=== PATIENT | female | born 1995 | race Caucasian/White ===

== ENCOUNTER 2017-04-28 12:55 | Emergency (ER) | payer OTHER ==
[~2017-04-28] VITALS: Ht 160 cm; Wt 105.4 kg
[2017-04-28] MEDS ORDERED: TUMS500 MG PO (13:07)
[2017-04-28] MEDS ORDERED: CRANBERR3 PO (13:07)
[2017-04-28] MEDS ORDERED: FISH OIL1 CAP (13:08)
[2017-04-28 13:40] LABS: HEMATOCRIT 42.8 % (37.0-47.0); HEMOGLOBIN 14.1 g/dl (12.0-16.0); IMMATURE GRANULOCYTES 0.4 % (0.0-1.0); MEAN CELL VOLUME 89.4 fL CALC (80.0-100.0); MEAN CORPUSCULAR HGB 29.4 pG CALC (26.0-32.0); MEAN CORPUSCULAR HGB CONC 32.9 g/L CALC (32.0-36.0); NEUT# 9.01 thou/uL (2.00-7.15); RED BLOOD COUNT 4.79 mill/uL (4.20-5.60); RED CELL DISTRI WIDTH 12.7 % (11.5-15.5)
[2017-04-28 13:57] LABS: ALBUMIN 4.5 g/dL (3.2-5.0); ALKALINE PHOSPHATASE 156 u/l (38-126); AMYLASE < 30 u/l (30-110); ANION GAP 20 (6-22 (CALC)); BILIRUBIN, TOTAL 0.7 mg/dL (0.0-1.4); BUN 12 mg/dL (7-17); BUN/CREATININE RATIO 23 (12-20 (CALC)); CALCIUM 9.8 mg/dL (8.4-10.2); CARBON DIOXIDE 18 mmol/l (22-30); CHLORIDE 107 mmol/l (95-108); CREATININE 0.5 mg/dL (0.5-1.0); GFR > 60 ML/MIN (>=60 (CALC)); GFR FOR AFR.AMER. > 60 ML/MIN (>=60 (CALC)); GLUCOSE 104 mg/dL (65-105); LIPASE 37 u/l (23-300); SGOT/AST 35 u/l (14-36); SGPT/ALT 103 u/l (9-52); SODIUM 141 mmol/l (137-146); TOTAL PROTEIN 7.5 g/dL (6.3-8.2)
[2017-04-28] MEDS ORDERED: PHENERGAN25 MG/TAB PO (15:12)
[2017-04-28] MEDS ORDERED: ZOFRAN ODT4 MG PO (15:12)
[2017-04-28 15:23] LABS: URINE BLOOD DIPSTICK NEGATIVE (NEGATIVE); URINE COLOR YELLOW; URINE GLUCOSE - DIPSTICK NEGATIVE (NEGATIVE); URINE KETONE >=80 mg/dL (NEGATIVE); URINE LEUK ESTERASE NEGATIVE (NEGATIVE); URINE NITRITE - DIPSTICK NEGATIVE (Negative); URINE PH 5.5 (4.5-8.0); URINE PROTEIN - DIPSTICK NEGATIVE (NEG-TRACE); URINE SPECIFIC GRAVITY >=1.030; URINE UROBILINOGEN - DIPSTICK 0.2 E.U./dL (0.2)
[2017-04-28 15:25] LABS: URINE BILIRUBIN - DIPSTICK SMALL (NEGATIVE); URINE CLARITY CLEAR
[2017-04-28 15:28] VITALS: BP 137/84
== END 2017-04-28 15:36 | disposition home or self-care (01) | DRG 781 ==
LOC: ED 12:55
PROVIDERS: Emergency Medicine
DX: O99.611 Diseases of the digestive system complicating pregnancy, first trimester (principal); R50.9 Fever, unspecified; R11.10 Vomiting, unspecified; Z3A.08 8 weeks gestation of pregnancy; R19.7 Diarrhea, unspecified

== ENCOUNTER 2017-05-09 14:03 | Emergency (ER) | payer OTHER ==
[~2017-05-09] VITALS: Ht 160 cm; Wt 105.0 kg
[~2017-05-09 14:03] MED LIST: CRANBERR3 PO; FISH OIL1 CAP; PHENERGAN25 MG/TAB PO; TUMS500 MG PO; ZOFRAN ODT4 MG PO
[2017-05-09 15:44] LABS: HEMATOCRIT 41.5 % (37.0-47.0); HEMOGLOBIN 13.7 g/dl (12.0-16.0); IMMATURE GRANULOCYTES 0.4 % (0.0-1.0); MEAN CELL VOLUME 88.7 fL CALC (80.0-100.0); MEAN CORPUSCULAR HGB 29.3 pG CALC (26.0-32.0); NEUT# 7.57 thou/uL (2.00-7.15); RED BLOOD COUNT 4.68 mill/uL (4.20-5.60); RED CELL DISTRI WIDTH 12.4 % (11.5-15.5)
[2017-05-09 15:54] LABS: ANION GAP 18 (6-22 (CALC)); BUN 8 mg/dL (7-17); BUN/CREATININE RATIO 16 (12-20 (CALC)); CALCIUM 9.7 mg/dL (8.4-10.2); CARBON DIOXIDE 21 mmol/l (22-30); CHLORIDE 105 mmol/l (95-108); CREATININE 0.5 mg/dL (0.5-1.0); GFR > 60 ML/MIN (>=60 (CALC)); GFR FOR AFR.AMER. > 60 ML/MIN (>=60 (CALC)); GLUCOSE 82 mg/dL (65-105); POTASSIUM 3.8 mmol/l (3.5-5.1); SODIUM 140 mmol/l (137-146)
[2017-05-09] MEDS ORDERED: PRENATA3 PO (16:28)
[2017-05-09 16:36] LABS: BETA-HCG, QUANT(RESULT NUMBER) 80576 mIU/mL
[2017-05-09 16:51] LABS: URINE BLOOD DIPSTICK SMALL (NEGATIVE); URINE COLOR YELLOW; URINE GLUCOSE - DIPSTICK NEGATIVE (NEGATIVE); URINE KETONE >=80 mg/dL (NEGATIVE); URINE LEUK ESTERASE NEGATIVE (NEGATIVE); URINE NITRITE - DIPSTICK NEGATIVE (Negative); URINE PROTEIN - DIPSTICK TRACE mg/dL (NEG-TRACE); URINE SPECIFIC GRAVITY >=1.030; URINE UROBILINOGEN - DIPSTICK 0.2 E.U./dL (0.2)
[2017-05-09 16:53] LABS: URINE BILIRUBIN - DIPSTICK NEGATIVE (NEGATIVE); URINE CLARITY CLEAR
[2017-05-09 17:01] LABS: URINE SQUAMOUS EPITHELIAL CELL FEW EPI/hpf (0-FEW); URINE WBC 0-2 WBC/hpf (0-5)
[2017-05-09 18:48] VITALS: BP 104/53
== END 2017-05-09 18:48 | disposition home or self-care (01) | DRG 778 ==
LOC: ED 14:03
PROVIDERS: Family Medicine
DX: O20.9 Hemorrhage in early pregnancy, unspecified (principal); Z3A.10 10 weeks gestation of pregnancy

== ENCOUNTER 2017-12-22 18:31 | Emergency (ER) | payer OTHER ==
[~2017-12-22] VITALS: Ht 160 cm; Wt 100.0 kg
[~2017-12-22 18:31] MED LIST changes: +PRENATA3 PO
[2017-12-22 20:28] VITALS: BP 131/81
== END 2017-12-22 20:28 | disposition home or self-care (01) ==
LOC: ED 18:31
DX: S93.401A Sprain of unspecified ligament of right ankle, initial encounter (principal); W01.0XXA Fall on same level from slipping, tripping and stumbling without subsequent striking against object, initial encounter; Y92.009 Unspecified place in unspecified non-institutional (private) residence as the place of occurrence of the external cause

== ENCOUNTER 2018-03-12 01:20 | Emergency (ER) | payer SELFPAY ==
[~2018-03-12] VITALS: Ht 160 cm; Wt 104.5 kg
[~2018-03-12 01:20] MED LIST changes: +ACCUPRIL5 MG PO; +CRANBERRY1 TA1 PO; +FISH OIL1000 MG PO; +MOTRIN400 MG PO; +MOTRIN600 MG/TAB PO; +PRENATAL1 TA1 MT; +PROCARDIA10 MG PO
[2018-03-12] MEDS ORDERED: TRI-SPRINTEC PO (01:27)
[2018-03-12] MEDS ORDERED: IBUPROFEN600 MG PO (01:46)
[2018-03-12] MEDS ORDERED: AMOXICILLIN500 MG PO (01:46)
[2018-03-12] MEDS ORDERED: TRAMADOL HCL50 MG PO (01:46)
[2018-03-12 02:04] VITALS: BP 140/95
== END 2018-03-12 02:04 | disposition home or self-care (01) | DRG 159 ==
LOC: ED 01:20
DX: K01.1 Impacted teeth (principal); K04.7 Periapical abscess without sinus; K08.89 Other specified disorders of teeth and supporting structures

== ENCOUNTER 2020-03-17 16:22 | Emergency (ER) | payer OTHER ==
[~2020-03-17] VITALS: Ht 160 cm; Wt 122.0 kg
[~2020-03-17 16:22] MED LIST changes: +AMOXICILLIN500 MG PO; +IBUPROFEN600 MG PO; +TRAMADOL HCL50 MG PO; +TRI-SPRINTEC PO
[2020-03-17 17:20] LABS: HEMATOCRIT 42.6 % (37.0-47.0); HEMOGLOBIN 13.6 g/dl (12.0-16.0); IMMATURE GRANULOCYTES 0.2 % (0.0-5.0); MEAN CELL VOLUME 88.2 fL CALC (80.0-100.0); MEAN CORPUSCULAR HGB 28.2 pG CALC (26.0-32.0); MEAN CORPUSCULAR HGB CONC 31.9 g/dL CAL (32.0-36.0); NEUT# 7.7 thou/uL (2.00-7.15); RED BLOOD COUNT 4.83 mill/uL (4.20-5.60); RED CELL DISTRI WIDTH 13.2 % (11.5-15.5)
[2020-03-17 17:37] LABS: ALBUMIN 4.2 g/dL (3.2-5.0); ALKALINE PHOSPHATASE 140 u/l (38-126); ANION GAP 15 (6-22 (CALC)); BUN 12 mg/dL (7-17); BUN/CREATININE RATIO 21 (12-20 (CALC)); CARBON DIOXIDE 23 mmol/l (22-30); CHLORIDE 106 mmol/l (95-108); CREATININE 0.6 mg/dL (0.5-1.0); GFR > 60 ML/MIN (>=60 (CALC)); GFR FOR AFR.AMER. > 60 ML/MIN (>=60 (CALC)); POTASSIUM 3.8 mmol/l (3.5-5.1); SGOT/AST 24 u/l (14-36); SODIUM 140 mmol/l (137-146)
[2020-03-17 17:54] LABS: BILIRUBIN, TOTAL 0.3 mg/dL (0.0-1.4)
[2020-03-17 18:11] LABS: URINE BILIRUBIN - DIPSTICK NEGATIVE (NEGATIVE); URINE BLOOD DIPSTICK NEGATIVE (NEGATIVE); URINE CLARITY CLEAR; URINE COLOR YELLOW; URINE GLUCOSE - DIPSTICK NEGATIVE (NEGATIVE); URINE KETONE NEGATIVE (NEGATIVE); URINE LEUK ESTERASE NEGATIVE (Negative); URINE NITRITE - DIPSTICK NEGATIVE (Negative); URINE PROTEIN - DIPSTICK NEGATIVE (NEG-TRACE); URINE SPECIFIC GRAVITY 1.025; URINE UROBILINOGEN - DIPSTICK 0.2 E.U./dL (0.2)
[2020-03-17 20:29] VITALS: BP 131/81
[2020-03-17] MEDS ORDERED: PROTONIX40 M2 PO (20:41)
== END 2020-03-17 20:57 | disposition home or self-care (01) ==
LOC: ED 16:22
PROVIDERS: Family Medicine
DX: R07.89 Other chest pain (principal); K21.9 Gastro-esophageal reflux disease without esophagitis; R16.0 Hepatomegaly, not elsewhere classified; Z87.11 Personal history of peptic ulcer disease

== ENCOUNTER 2021-02-26 16:56 | Emergency (ER) | payer OTHER ==
[~2021-02-26] VITALS: Ht 160 cm; Wt 118.2 kg
[~2021-02-26 16:56] MED LIST changes: +PROTONIX40 M2 PO
[2021-02-26 18:55] LABS: URINE BILIRUBIN - DIPSTICK NEGATIVE (NEGATIVE); URINE BLOOD DIPSTICK TRACE-INTACT (NEGATIVE); URINE CLARITY CLEAR; URINE COLOR YELLOW; URINE GLUCOSE - DIPSTICK NEGATIVE (NEGATIVE); URINE KETONE NEGATIVE (NEGATIVE); URINE LEUK ESTERASE NEGATIVE (Negative); URINE NITRITE - DIPSTICK NEGATIVE (Negative); URINE PROTEIN - DIPSTICK NEGATIVE (NEG-TRACE); URINE UROBILINOGEN - DIPSTICK 0.2 E.U./dL (0.2)
[2021-02-26] MEDS ORDERED: PREDNISONE50 MG PO (19:58)
[2021-02-26] MEDS ORDERED: TESSALON PERLE100 MG PO (19:58)
[2021-02-26 20:01] VITALS: BP 113/78
== END 2021-02-26 20:21 | disposition home or self-care (01) ==
LOC: ED 16:56
DX: R05.9 Cough, unspecified (principal); F31.9 Bipolar disorder, unspecified; Z20.822 Contact with and (suspected) exposure to COVID-19

== ENCOUNTER 2021-10-21 16:37 | Emergency (ER) | payer OTHER ==
[~2021-10-21] VITALS: Ht 160 cm; Wt 121.5 kg
[~2021-10-21 16:37] MED LIST changes: +PREDNISONE50 MG PO; +TESSALON PERLE100 MG PO
[2021-10-21 16:46] VITALS: BP 139/102
[2021-10-21 17:00] VITALS: BP 131/76
[2021-10-21 17:31] VITALS: BP 115/67
[2021-10-21 18:00] VITALS: BP 131/77
[2021-10-21 18:31] VITALS: BP 136/83
[2021-10-21 18:39] VITALS: BP 136/83
== END 2021-10-21 19:02 | disposition home or self-care (01) ==
LOC: ED 16:37
DX: M25.572 Pain in left ankle and joints of left foot (principal); F31.9 Bipolar disorder, unspecified; W10.9XXA Fall (on) (from) unspecified stairs and steps, initial encounter; Y92.009 Unspecified place in unspecified non-institutional (private) residence as the place of occurrence of the external cause

== ENCOUNTER 2023-01-04 23:48 | Emergency (ER) | payer OTHER ==
[~2023-01-04] VITALS: Ht 160 cm; Wt 97.0 kg
[2023-01-05 00:01] VITALS: BP 138/87
[2023-01-05] MEDS ORDERED: INDERAL10 MG PO (00:35)
[2023-01-05] MEDS ORDERED: TRAZODONE50 MG PO (00:35)
[2023-01-05] MEDS ORDERED: BIOTIN5000 MC2 (00:36)
[2023-01-05] MEDS ORDERED: CRANBERRY125 MG PO (00:37)
[2023-01-05] MEDS ORDERED: D350 MCG (00:37)
[2023-01-05] MEDS ORDERED: COZAAR25 MG PO (00:38)
[2023-01-05 00:41] LABS: BASO% 0.1 % (0-3); EOS% 2.4 % (0-8); HEMATOCRIT 38.7 % (37.0-47.0); HEMOGLOBIN 12.8 g/dl (12.0-16.0); IMMATURE GRANULOCYTES 0.4 % (0.0-5.0); MEAN CELL VOLUME 88.4 fL CALC (80.0-100.0); MEAN CORPUSCULAR HGB 29.2 pG CALC (26.0-32.0); MEAN CORPUSCULAR HGB CONC 33.1 g/dL CAL (32.0-36.0); MONO% 5.9 % (2-13); NEUT# 4.47 thou/uL (2.00-7.15); NEUT% 54.2 % (42-76); RED BLOOD COUNT 4.38 mill/uL (4.20-5.60); RED CELL DISTRI WIDTH 12.5 % (11.5-15.5)
[2023-01-05 01:02] LABS: ALKALINE PHOSPHATASE 151 u/l (38-126); ANION GAP 11 (6-22 (CALC)); BILIRUBIN, TOTAL 0.4 mg/dL (0.02-1.3); BUN 17 mg/dL (7-17); BUN/CREATININE RATIO 25 (12-20 (CALC)); CARBON DIOXIDE 25 mmol/l (22-30); CHLORIDE 106 mmol/l (95-108); CREATININE 0.7 mg/dL (0.5-1.0); GFR FOR AFR.AMER. > 60 ML/MIN (>=60 (CALC)); GFR OTHER RACES > 60 ML/MIN (>=60 (CALC)); POTASSIUM 4.2 mmol/l (3.5-5.1); SODIUM 138 mmol/l (137-146); TOTAL PROTEIN 7.5 g/dL (6.3-8.2)
[2023-01-05 01:06] LABS: SGOT/AST 60 u/l (14-36)
[2023-01-05] MEDS ORDERED: VOLTAREN - GENE75 MG PO (01:33)
[2023-01-05 01:51] VITALS: BP 138/87
== END 2023-01-05 01:51 | disposition home or self-care (01) ==
LOC: ED 23:48
PROVIDERS: Family Medicine
DX: R07.9 Chest pain, unspecified (principal); M54.12 Radiculopathy, cervical region; F31.9 Bipolar disorder, unspecified

== ENCOUNTER 2023-03-11 05:23 | Emergency (ER) | payer OTHER ==
[~2023-03-11] VITALS: Ht 160 cm; Wt 121.0 kg
[~2023-03-11 05:23] MED LIST changes: +BIOTIN5000 MC2; +COZAAR25 MG PO; +CRANBERRY125 MG PO; +D350 MCG; +INDERAL10 MG PO; +TRAZODONE50 MG PO; +VOLTAREN - GENE75 MG PO
[2023-03-11 05:29] VITALS: BP 153/94
[2023-03-11 06:07] LABS: BASO% 0.1 % (0-3); EOS% 1.3 % (0-8); HEMATOCRIT 40.7 % (37.0-47.0); HEMOGLOBIN 13.2 g/dl (12.0-16.0); IMMATURE GRANULOCYTES 0.2 % (0.0-5.0); LYMPH% 21.2 % (15-41); MEAN CELL VOLUME 89.6 fL CALC (80.0-100.0); MEAN CORPUSCULAR HGB 29.1 pG CALC (26.0-32.0); MEAN CORPUSCULAR HGB CONC 32.4 g/dL CAL (32.0-36.0); MONO% 4.5 % (2-13); NEUT# 7.2 thou/uL (2.00-7.15); NEUT% 72.7 % (42-76); RED BLOOD COUNT 4.54 mill/uL (4.20-5.60); RED CELL DISTRI WIDTH 12.9 % (11.5-15.5)
[2023-03-11 06:17] VITALS: BP 129/77
[2023-03-11 06:27] LABS: ACT PARTIAL THROMBO TIME 25.7 SECONDS (20.0-32.5); ALBUMIN 4.2 g/dL (3.2-5.0); ALKALINE PHOSPHATASE 136 u/l (38-126); ANION GAP 17 (6-22 (CALC)); BILIRUBIN, TOTAL 0.5 mg/dL (0.02-1.3); BUN 12 mg/dL (7-17); BUN/CREATININE RATIO 20 (12-20 (CALC)); CARBON DIOXIDE 20 mmol/l (22-30); CHLORIDE 106 mmol/l (95-108); CREATININE 0.6 mg/dL (0.5-1.0); ETHYL ALCOHOL 0 mg/dl (0-30); GFR FOR AFR.AMER. > 60 ML/MIN (>=60 (CALC)); GFR OTHER RACES > 60 ML/MIN (>=60 (CALC)); PROTHROMBIN TIME 9.4 SECONDS (9.0-12.5); SGOT/AST 32 u/l (14-36); SODIUM 139 mmol/l (137-146); TOTAL PROTEIN 7.9 g/dL (6.3-8.2)
[2023-03-11 06:33] LABS: D-DIMER 0.84 mg/L (0.19-0.60)
[2023-03-11 06:37] LABS: URINE BILIRUBIN - DIPSTICK Negative (NEGATIVE); URINE BLOOD DIPSTICK Trace-intact (NEGATIVE); URINE GLUCOSE - DIPSTICK Negative (NEGATIVE); URINE KETONE Negative (NEGATIVE); URINE LEUK ESTERASE Negative (NEGATIVE); URINE NITRITE - DIPSTICK Negative (Negative); URINE PH 5.5 (4.5-8.0); URINE PROTEIN - DIPSTICK Negative (NEG-TRACE); URINE UROBILINOGEN - DIPSTICK 0.2 E.U./dL (0.2)
[2023-03-11 06:38] LABS: URINE COLOR Yellow
[2023-03-11 06:57] LABS: TSH, 3RD GENERATION 1.97 uIU/mL (0.47 - 4.68)
[2023-03-11] MEDS ORDERED: LEXAPRO10 MG PO (07:00)
[2023-03-11] MEDS ORDERED: TRAZODONE100 MG PO (07:00)
[2023-03-11] MEDS ORDERED: INDERAL 40MG TA40 MG PO (07:00)
[2023-03-11 07:01] VITALS: BP 116/64
[2023-03-11 07:04] VITALS: BP 116/64
== END 2023-03-11 07:13 | disposition home or self-care (01) ==
LOC: ED 05:23
PROVIDERS: Family Medicine
DX: R07.9 Chest pain, unspecified (principal); F41.9 Anxiety disorder, unspecified; I10 Essential (primary) hypertension; F31.9 Bipolar disorder, unspecified

== ENCOUNTER 2023-11-13 15:55 | Emergency (ER) | payer OTHER ==
[2023-11-13] VITALS (8 sets, daily range): BP systolic 133–143; BP diastolic 82–97
[~2023-11-13] VITALS: Ht 160 cm; Wt 122.5 kg
[~2023-11-13 15:55] MED LIST changes: +INDERAL 40MG TA40 MG PO; +LEXAPRO10 MG PO; +TRAZODONE100 MG PO
[2023-11-13 16:33] LABS: BASO% 0.2 % (0-3); EOS% 0.8 % (0-8); HEMATOCRIT 39.9 % (37.0-47.0); HEMOGLOBIN 13.5 g/dl (12.0-16.0); IMMATURE GRANULOCYTES 0.1 % (0.0-5.0); LYMPH% 22.5 % (15-41); MEAN CELL VOLUME 86.7 fL CALC (80.0-100.0); MEAN CORPUSCULAR HGB 29.3 pG CALC (26.0-32.0); MEAN CORPUSCULAR HGB CONC 33.8 g/dL CAL (32.0-36.0); MONO% 3.7 % (2-13); NEUT# 8.44 thou/uL (2.00-7.15); NEUT% 72.7 % (42-76); RED BLOOD COUNT 4.6 mill/uL (4.20-5.60); RED CELL DISTRI WIDTH 12.7 % (11.5-15.5)
[2023-11-13 16:37] LABS: URINE BILIRUBIN - DIPSTICK Negative (NEGATIVE); URINE BLOOD DIPSTICK Trace-lysed (NEGATIVE); URINE GLUCOSE - DIPSTICK Negative (NEGATIVE); URINE KETONE 15 mg/dL (NEGATIVE); URINE LEUK ESTERASE Trace (NEGATIVE); URINE NITRITE - DIPSTICK Negative (Negative); URINE PH 5.5 (4.5-8.0); URINE PROTEIN - DIPSTICK Negative (NEG-TRACE); URINE SPECIFIC GRAVITY 1.025; URINE UROBILINOGEN - DIPSTICK 0.2 E.U./dL (0.2)
[2023-11-13 16:38] LABS: URINE COLOR Yellow
[2023-11-13 16:41] LABS: ALBUMIN 4.2 g/dL (3.2-5.0); BILIRUBIN, TOTAL 0.6 mg/dL (0.02-1.3); CREATININE 0.8 mg/dL (0.5-1.0); POTASSIUM 3.8 mmol/l (3.5-5.1); TOTAL PROTEIN 8.2 g/dL (6.3-8.2)
== END 2023-11-13 20:09 | disposition home or self-care (01) ==
LOC: ED 15:55
PROVIDERS: Family Medicine
DX: R10.2 Pelvic and perineal pain (principal); R30.0 Dysuria; N83.202 Unspecified ovarian cyst, left side; I10 Essential (primary) hypertension; E66.01 Morbid (severe) obesity due to excess calories; F31.9 Bipolar disorder, unspecified; F41.9 Anxiety disorder, unspecified

== ENCOUNTER 2024-02-11 04:33 | Emergency (ER) | payer OTHER ==
[~2024-02-11] VITALS: Ht 160 cm; Wt 72.0 kg
[2024-02-11 04:42] VITALS: BP 132/96
[2024-02-11 04:46] VITALS: BP 128/104
[2024-02-11 04:47] VITALS: BP 127/74
[2024-02-11] MEDS ORDERED: DiphenhydrAMINE HCL 25 MG CPLT PO ONE (04:50)
[2024-02-11] MEDS ORDERED: HYDROcodone POLISTIREX/CHLORPH 5 ML UDC PO ONE (04:50)
[2024-02-11 05:49] LABS: BASO% 0.1 % (0-3); EOS% 1.7 % (0-8); HEMATOCRIT 41.3 % (37.0-47.0); HEMOGLOBIN 13.4 g/dl (12.0-16.0); IMMATURE GRANULOCYTES 0.1 % (0.0-5.0); MEAN CORPUSCULAR HGB 29.2 pG CALC (26.0-32.0); MEAN CORPUSCULAR HGB CONC 32.4 g/dL CAL (32.0-36.0); NEUT# 5.93 thou/uL (2.00-7.15); NEUT% 64.1 % (42-76); RED BLOOD COUNT 4.59 mill/uL (4.20-5.60); RED CELL DISTRI WIDTH 12.4 % (11.5-15.5)
[2024-02-11 06:03] LABS: HCG SERUM/URINE (NEG/POS) NEGATIVE (NEGATIVE)
[2024-02-11] MEDS ORDERED: ROBITUSSIN AC10 ML PO (06:49)
[2024-02-11 06:57] VITALS: BP 127/74
== END 2024-02-11 07:11 | disposition home or self-care (01) ==
LOC: ED 04:33
PROVIDERS: Family Medicine
DX: B34.9 Viral infection, unspecified (principal); I10 Essential (primary) hypertension; F41.9 Anxiety disorder, unspecified; F31.9 Bipolar disorder, unspecified; Z20.822 Contact with and (suspected) exposure to COVID-19